=== PATIENT | male | born 1975 | race Caucasian/White ===

== ENCOUNTER 2023-07-14 17:56 | Emergency (ER) | payer SELFPAY ==
[2023-07-14 17:57] VITALS: BP 156/104; PULSE 77; RESP 18; TEMP 36.6; O2SAT 98; BMI 29.1
--- NOTE | 2023-07-14 18:14 | XRR_ITS ---
PROCEDURE INFORMATION: Exam: XR Chest Exam date and time: 07/14/2023 6:54 PM Age: 47 years old Clinical indication: Chest wall pain; Additional info: Chest pain TECHNIQUE: Imaging protocol: Radiologic exam of the chest. Views: 1 view. COMPARISON: CT abdomen pelvis w con* [id number] 07/14/2023 6:45 PM FINDINGS: Lungs: Hypoinflated lungs with bibasilar atelectasis. No focal consolidation. Pleural spaces: Unremarkable. No pleural effusion. No pneumothorax. Heart/Mediastinum: Unremarkable. No cardiomegaly. Bones/joints: There is mild degenerative disease of bilateral acromioclavicular joints. XR/XR chest 1V [id number] IMPRESSION: No acute cardiopulmonary process.
--- NOTE | 2023-07-14 18:14 | CTR_ITS ---
PROCEDURE INFORMATION: Exam: CT Abdomen And Pelvis With Contrast Exam date and time: 07/14/2023 6:45 PM Age: 47 years old Clinical indication: Abdominal pain; Prior surgery; Surgery date: 6+ months; Surgery type: Appy. Left hip; Patient HX: C/O epigastric pain; Additional info: Acute epigastric tenderness TECHNIQUE: Imaging protocol: Computed tomography of the abdomen and pelvis with contrast. Radiation optimization: All CT scans at this facility use at least one of these dose optimization techniques: automated exposure control; mA and/or kV adjustment per patient size (includes targeted exams where dose is matched to clinical indication); or iterative reconstruction. Contrast material: OMNI 350; Contrast volume: 100 ml; Contrast route: INTRAVENOUS (IV); COMPARISON: CT abdomen pelvis w con* [id number] 10/01/2018 11:39 AM RADIATION DOSE METRICS: Total DLP (mGy-cm): 995.02 FINDINGS: Lungs: There are atelectatic changes in bilateral lung bases. Liver: Normal. No mass. Gallbladder and bile ducts: Normal. No calcified stones. No ductal dilation. Pancreas: Normal. No ductal dilation. Spleen: Normal. No splenomegaly. Adrenal glands: Normal. No mass. Kidneys and ureters: Normal. No hydronephrosis. Stomach and bowel: There is diverticulosis of the descending and sigmoid colon with no changes of diverticulitis. There are mildly dilated fluid filled small bowel loops with no transition zone to suggest small obstruction. Appendix: Post appendectomy. Intraperitoneal space: Unremarkable. No free air. No significant fluid collection. Vasculature: Unremarkable. No abdominal aortic aneurysm. Lymph nodes: Unremarkable. No enlarged lymph nodes. Urinary bladder: Unremarkable as visualized. Reproductive: Unremarkable as visualized. Bones/joints: Orthopedic hardware is seen in the femur with chronic fracture deformity involving the lesser trochanter. Chronic fracture deformity of the left pubic bone. There [id number] degenerative of the lumbar spine, most pronounced at L4-L5 and L5-S1 with mild retrolisthesis and posterior disc bulges causing [id number] thecal sac compression. Soft tissues: There are bilateral fat containing inguinal hernias. CT/CT abdomen pelvis w con* [id number] IMPRESSION: 1. Findings suggestive of enteritis. 2. No bowel obstruction. 3. Diverticulosis but no diverticulitis.
--- NOTE | 2023-07-14 18:17 | W.ED.ABDPA2 ---
HPI - Abdominal Pain General: Chief Complaint: Abdominal Pain Stated Complaint: Pain and Swelliong under breast Plate Time Seen by Provider: 07/14/23 18:05 History of Present Illness: Patient is a 47-year-old male with a past medical history significant for substance abuse who presents to the emergency department for evaluation of epigastric pain. Patient reports that his symptoms started acutely last night and has continued to progress since onset. Patient reports that he has had intermittent similar symptoms for approximately 1 year. Patient reports that he notices his pain gets very severe when he gets agitated or anxious. Patient reports that last night he got mad at his daughter's boyfriend which caused this most recent episode. Patient states that he did also have chest pain last night and has had some shortness of breath. Patient states that his chest pain is now resolved, however, he continues to complain of epigastric pain. Patient also states that he feels bloated. Admits to several episodes of nausea and vomiting. Patient states that he noticed some hematemesis. Patient states that 2 weeks ago he had really dark stools. Patient is concerned about a possible gastrointestinal bleed. Patient currently rates his pain as a 7 out of 10 in severity that he describes as a burning-like sensation. Patient admits to drinking approximately 2-3 shots of whiskey every day. He also admits to intermittent IV methamphetamine use. Admits to using IV methamphetamine yesterday. Patient denies fever, chills, cough, congestion, sore throat, otalgia, otorrhea, dysuria, hematuria, hematochezia, constipation, diarrhea, or any other associated symptoms. No other complaints at this time. Associated Symptoms: Reports bloating, hematochezia, hematemesis, nausea and vomiting; Denies chills, dysuria and fever(s) Review of Systems General: Reports: 10 or more systems reviewed and unremarkable except in HPI and below Const: Denies: fever(s), chills or body aches Eyes: Denies: change in vision, blurry vision, eye discharge or eye redness ENMT: Denies: throat pain, ear or mastoid pain, ear discharge, nasal discharge or nasal congestion Card: Reports: chest pain and dyspnea on exertion; Denies: palpitations, irregular heart rhythm or edema Resp: Denies: productive cough, non-productive cough, wheezing or stridor GI: Reports: abdominal pain, nausea, vomiting, hematemesis, bloating and hematochezia : Denies: flank pain, dysuria, urinary frequency, penile discharge or testicular pain Musc: Denies: neck pain, back pain or extremity pain Skin/Breast: Denies: rash Neuro: Denies: headache(s), dizziness or vertigo Psych: Reports: anxiety Physical Exam Const: COMMON NORMALS: no acute distress HENMT: COMMON NORMALS: normocephalic, atraumatic, moist oral mucous membranes and oropharynx normal HEAD & SCALP: normocephalic and atraumatic Eye: COMMON NORMALS: Equal, round and reactive pupils present, EOMs intact bilaterally, conjunctivae normal and no scleral icterus CONJUNCTIVA: Yes conjunctivae normal PUPIL: Yes Equal, round and reactive pupils present Neck/C-Spine: COMMON NORMALS: full ROM, supple and no meningeal signs Chest: COMMONS NORMALS: normal inspection of the chest and normal palpation of entire chest wall Resp: COMMON NORMALS: normal respiratory effort, No retractions, No use of accessory muscles and clear to auscultation bilaterally AUSCULTATION: clear to auscultation bilaterally Cardio: COMMON NORMALS: regular rate, regular rhythm, S1 normal heart sound present, S2 normal heart sound present, No gallops present (Cardio), No clicks present (Cardio), No murmurs present (Cardio), No rub (Cardio) and Peripheral pulses 2+ throughout RATE: regular rate RHYTHM: regular rhythm HEART SOUNDS: S1 normal heart sound present and S2 normal heart sound present PERIPHERAL PULSES: Peripheral pulses 2+ throughout GI: OTHER: Epigastric tenderness noted to palpation. No McBurney's point tenderness, Rovsing sign, Santiago sign, or peritoneal signs noted. No evidence of rebound tenderness. Normoactive bowel sounds in all 4 quadrants. : COMMON NORMALS: Yes no CVA tenderness BLADDER/KIDNEY EXAM: Yes no CVA tenderness Back/Pelvis: COMMON NORMALS: no CVA tenderness Extremity: NARRATIVE EXTREMITY EXAM: Moving bilateral upper and lower extremities without weakness or deficit. Neuro: MENINGEAL SIGNS: Yes no meningeal signs OTHER: Patient is alert and oriented x 4. No focal neurological deficits noted on examination. Sensation intact in bilateral upper and lower extremities. Skin: COMMON NORMALS: no rashes or lesions noted GENERAL SKIN EXAM: no rashes or lesions noted Course Vital Signs: Vital signs: Vital Signs Temperature 97.8 F 07/14/23 17:57 Pulse Rate 77 07/14/23 17:57 Respiratory Rate 18 07/14/23 17:57 Blood Pressure 156/104 07/14/23 17:57 Pulse Oximetry 98 07/14/23 17:57 Oxygen Delivery Me thod Room Air 07/14/23 17:57 MDM - Abdominal Pain Medical Decision Making Patient is a 47-year-old male with a past medical history significant for substance abuse who presents to the emergency department for evaluation of epigastric pain. On physical examination patient is nontoxic and in no acute distress. Vital signs remained stable throughout ED course. Patient is afebrile. No nausea or vomiting in the emergency department. Patient is hemodynamically stable. Patient endorses several episodes of hematemesis and states that he had some black stools approximately 2 weeks ago. Patient is denying a rectal examination and Hemoccult test in the emergency department. CBC showed no evidence of anemia. Mild leukocytosis was noted at 12.96. This could be related to demargination secondary to the patient's nausea or vomiting. CMP, lipase, initial troponin, and 2-hour troponin all grossly unremarkable. EKG sinus tachycardia. Chest x-ray showed no acute cardiopulmonary pathology. I do not think acute coronary syndrome is likely at this time. Patient denies active chest pain or shortness of breath at this time. CT of the abdomen pelvis with contrast showed findings suggestive of enteritis. No bowel obstruction. Diverticulosis but no evidence of diverticulitis. Based off history and physical examination I do not believe the patient symptoms are emergent and warrant further emergent evaluation at this time. Patient states that he drinks several shots of whiskey a day. This is likely causing a alcohol related gastritis. Patient was given 40 mg of IV Protonix in the emergency department. Given the patient stated hematemesis and melena I will refer to general surgery for an endoscopy/colonoscopy. I will also give a prescription of omeprazole. Patient could not provide a urine sample in the emergency department and does not want to wait for urine. Is requesting discharge with outpatient follow-up with primary care provider and the general surgeon. Patient was given strict return precautions. Patient stated understanding of all discharge instructions was agreeable to plan of care. I discussed patient's history, exam, and all findings with Dr. Ocampo in the emergency department who agreed with my assessment and plan. He did not feel the patient required admission or further evaluation at this time. Differential diagnosis includes but is not limited to pancreatitis, gastroenteritis, obstruction, colitis, diverticulitis, electrolyte abnormality, acute coronary syndrome, anxiety, gastrointestinal bleed Lab Data 07/14/23 18:37 07/14/23 18:37 Labs/Radiology: Radiology Impressions Abdomen/Pelvis CT 07/14/23 18:14 IMPRESSION: 1. Findings suggestive of enteritis. 2. No bowel obstruction. 3. Diverticulosis but no diverticulitis. Chest X-Ray 07/14/23 18:14 IMPRESSION: No acute cardiopulmonary process. Laboratory Results WBC 12.96 10^3/uL (3.29-11.43) H 07/14/23 18:37 RBC 5.80 10^6/uL (3.85-5.65) H 07/14/23 18:37 Hgb 17.00 g/dL (11.27-16.99) H 07/14/23 18:37 Hct 52.3 % (37-53) 07/14/23 18:37 MCV 90.2 fl (82-101) 07/14/23 18:37 MCH 29.3 pg (27-33) 07/14/23 18:37 MCHC 32.5 g/dL (30-55) 07/14/23 18:37 RDW 13.4 % (12.1-15.1) 07/14/23 18:37 Plt Count 397 10^3/cmm (157-399) 07/14/23 18:37 MPV 10.4 fL (7.4-10.4) 07/14/23 18:37 Neut % (Auto) 85.2 % 07/14/23 18:37 Lymph % (Auto) 9.3 % 07/14/23 18:37 Boyle % (Auto) 4.2 % 07/14/23 18:37 Eos % (Auto) 0.5 % 07/14/23 18:37 Baso % (Auto) 0.4 % 07/14/23 18:37 Neut # (Auto) 11.05 10^3/uL (1.8-7.7) H 07/14/23 18:37 Lymph # (Auto) 1.2 10^3/uL (0.8-4.8) 07/14/23 18:37 Boyle # (Auto) 0.5 10^3/uL (0.2-0.9) 07/14/23 18:37 Eos # (Auto) 0.1 10^3/uL (0.0-0.8) 07/14/23 18:37 Baso # (Auto) 0.1 10^3/uL (0.0-0.1) 07/14/23 18:37 Nucleated RBC % (auto) 0 % 07/14/23 18:37 Nucleated RBCs # 0.0 /100WBC 07/14/23 18:37 Sodium 136 mmol/L (136-145) 07/14/23 18:37 Potassium 4.4 mmol/L (3.5-5.1) 07/14/23 18:37 Chloride 100 mmol/L (98-107) 07/14/23 18:37 Carbon Dioxide 23 mmol/L (22-29) 07/14/23 18:37 Anion Gap 17.4 (5-19) 07/14/23 18:37 BUN 23 mg/dL (6-20) H 07/14/23 18:37 Creatinine 0.9 mg/dL (0.7-1.2) 07/14/23 18:37 GFR Calculation 91.3 mL/min (90-130) 07/14/23 18:37 Glucose 114 mg/dL (65-115) 07/14/23 18:37 Calculated Osmolality 287 mOsm/kg (285-295) 07/14/23 18:37 Calcium 9.6 mg/dL (8.5-10.5) 07/14/23 18:37 Total Bilirubin 0.9 mg/dL (0.15-1.2) 07/14/23 18:37 AST 32 U/L (0-40) 07/14/23 18:37 ALT 42 U/L (0-41) H 07/14/23 18:37 Alkaline Phosphatase 108 U/L (40-130) 07/14/23 18:37 Troponin T Baseline 7 ng/L (0-15) 07/14/23 18:37 Troponin T 120 Minute 6.08 ng/L (0-15) 07/14/23 20:12 Delta Troponin T -0.92 ABS# (0-10) L 07/14/23 20:12 Total Protein 9.0 g/dL (6.6-8.7) H 07/14/23 18:37 Albumin 4.8 g/dL (3.5-5.2) 07/14/23 18:37 Globulin 4.2 g/dL (1.3-4.6) 07/14/23 18:37 Lipase 35 U/L (13-60) 07/14/23 18:37 All radiology interpretation(s) finalized by discharge Discharge Plan Discharge Patient Disposition: Home Clinical Impression: Abdominal pain, epigastric Condition: Stable Prescriptions: New omeprazole 20 mg capsule,delayed release(DR/EC) 20 mg PO DAILY 14 Days Qty: 14 0RF Discharge Orders: Discharge ED (Routine); Ordered 07/14/23 Ordered By: Jorgito Haque Referrals: Link Gayle DO [Physician] - Patient Instructions: Gastritis (ED), Abdominal Pain (ED) Activity Restrictions/Additional Instructions: A referral was sent to general surgery. Number provided in discharge paperwork, call tomorrow to schedule appointment for further management/evaluation. Increase oral hydration. Avoid large fatty greasy meals that can exacerbate your symptoms. Clear liquid diet and slowly advance as tolerated. A prescription of omeprazole was sent to pharmacy be picked up. Take medication as prescribed. Avoid alcohol use as this is likely exacerbating your symptoms. Return to emergency in the next 12 to 24 hours for any rapid or worsening symptoms to include but not limited to worsening abdominal pain, uncontrollable vomiting, chest pain, shortness of breath, palpitations, lightheadedness, dizziness, fever, or as needed. Coding Level of Care Code ED Director Of [employer] for Teresa Graham
--- NOTE | 2023-07-14 18:23 | ECG_ITS ---
[facility] Test Date: 2023-07-14 Pat Name: Cooper Garcia Department: Room: Gender: Male [employer]er: : 1975 Requested By: Jorgito Haque Order Number: [id number] Persaud MD: Joss Shook M.D. Measurements Intervals [place] Rate: 110 P: 62 DC: 104 QRS: 73 QRSD: 81 T: 63 QT: 356 QTc: 482 Interpretive Statements SINUS TACHYCARDIA WITH SHORT DC INTERVAL No previous ECG available for comparison Electronically Signed On 07-14-2023 18:57:49 DIVIDEND CLERK by Joss Shook M.D. [email or web address]
[2023-07-14] MEDS: iohexol 350 mg/mL 500 mL Btl (per mL) IV (18:49)
[2023-07-14 18:56] LABS: Basophils # 0.1 10^3/uL (0.0-0.1); Basophils % 0.4 %; Eosinophils # 0.1 10^3/uL (0.0-0.8); Eosinophils % 0.5 %; Hematocrit 52.3 % (37-53); Lymphocytes # 1.2 10^3/uL (0.8-4.8); Lymphocytes % 9.3 %; Mean Corpuscular HGB Conc 32.5 g/dL (30-55); Mean Corpuscular Hemoglobin 29.3 pg (27-33); Mean Corpuscular Volume 90.2 fl (82-101); Mean Platelet Volume 10.4 fL (7.4-10.4); Monocytes # 0.5 10^3/uL (0.2-0.9); Monocytes % 4.2 %; Neutrophils # 11.05 10^3/uL (1.8-7.7); Neutrophils % 85.2 %; Nucleated Red Blood Cells % 0 %; Platelet Count 397 10^3/cmm (157-399); Red Cell Distribution Width 13.4 % (12.1-15.1); White Blood Count 12.96 10^3/uL (3.29-11.43)
[2023-07-14] MEDS: pantoprazole 40 mg SDV IVP (19:02)
[2023-07-14] MEDS: ondansetron 2 mg/ML SDV 2 mL 4 MG IVP (19:02)
[2023-07-14 19:17] LABS: Alanine Aminotransferase 42 U/L (0-41); Albumin Level 4.8 g/dL (3.5-5.2); Alkaline Phosphatase 108 U/L (40-130); Anion Gap 17.4 (5-19); Aspartate Amino Transferase 32 U/L (0-40); Blood Urea Nitrogen 23 mg/dL (6-20); Calcium 9.6 mg/dL (8.5-10.5); Carbon Dioxide 23 mmol/L (22-29); Chloride 100 mmol/L (98-107); Globulin 4.2 g/dL (1.3-4.6); Glomerular Filtration Rate 91.3 mL/min (90-130); Glucose 114 mg/dL (65-115); Lipase 35 U/L (13-60); Osmolality Calculated 287 mOsm/kg (285-295); Potassium 4.4 mmol/L (3.5-5.1); Sodium 136 mmol/L (136-145); Total Bilirubin 0.9 mg/dL (0.15-1.2)
[2023-07-14 19:23] LABS: Troponin(5th) Baseline 7 ng/L (0-15)
[2023-07-14 20:35] LABS: Troponin 5 2HR 6.08 ng/L (0-15)
[2023-07-14 20:37] LABS: Troponin 5 2HR Delta -0.92 ABS# (0-10)
[2023-07-14 21:14] VITALS: BP 156/104; PULSE 77; RESP 18; TEMP 36.6; O2SAT 98
--- NOTE | 2023-07-15 22:35 | DCPLANNER ---
Message sent to gen surg for EGD/colonoscopy
== END 2023-07-14 21:14 | disposition home or self-care (01) ==
PROVIDERS: Emergency Provider Physician Assistant
DX: R10.13 Epigastric pain (principal)
CPT/HCPCS: 36415; 71045; 74177; 80053; 83690; 84484; 85025; 93005; 96374; 96375; 99285; C9113; J2405; Q9967